=== PATIENT | male | born 1980 | race Caucasian/White ===

== ENCOUNTER 2016-10-19 20:57 | Emergency (ER) | payer BC ==
[2016-10-19 21:14] VITALS: BP 165/116
--- NOTE | 2016-10-19 21:30 | EDM.PDOC ---
ED HPI GENERAL MEDICAL PROBLEM - General Chief Complaint: Lower Extremity Injury/Pain Stated Complaint: POSS BROKEN ANKLE Time Seen by Provider: 10/19/16 21:26 Source of Information: Reports: Patient History Limitations: Reports: No Limitations - History of Present Illness INITIAL COMMENTS - FREE TEXT/NARRATIVE: 35-year-old male presents for evaluation treatment of injury to the right ankle. Injury occurred prior to arrival in the ER. Patient reports he was playing basketball. He states he was trying to "do some [place] shit " in order to aid a game of Pig. Landed on an inverted ankle. Reports immediate pain and swelling. Has not been able to bear weight on the foot or ankle due to pain. Reports he has been icing this prior to arrival in the ER. Has injured the ankle past. No previous injuries history of any ankle fractures. Location: Reports: Lower Extremity, Right Treatments [employer]: Reports: Cold Therapy Right Ankle Pain Score (Numeric/FACES): 2 - Related Data Allergies Allergy/AdvReac Type Severity Reaction Status Date / Time levofloxacin [From Levaquin] Allergy Other Verified 10/19/16 21:14 Home Meds: Home Meds Escitalopram [Lexapro] 20 mg PO DAILY 10/19/16 [History] Zolpidem [Ambien] 10 mg PO BEDTIME PRN 10/19/16 [History] Past Medical History - Past Health History Medical/Surgical History: Denies Medical/Surgical History Social & Family History - Family History Family Medical History: Noncontributory - Tobacco Use Smoking Status *Q: Never Smoker - Recreational Drug Use Recreational Drug Use: No Review of Systems - Review of Systems Review Of Systems: See Below Musculoskeletal: Reports: Joint Pain (right ankle ), Joint Swelling (right ankle ) Skin: Denies: Bruising, Wound Neurological: Reports: Difficulty Walking. Denies: Numbness, Tingling ED EXAM, GENERAL - Physical Exam Exam: See Below Exam Limited By: No Limitations General Appearance: Alert, WD/WN, No Apparent Distress Respiratory/Chest: No Respiratory Distress Cardiovascular: Normal Peripheral Pulses, Regular Rate, Rhythm Peripheral Pulses: 2+: Posterior Tibial (L), Posterior Tibial (R), Dorsalis Pedis (L), Dorsalis Pedis (R) Extremities: Normal Capillary Refill, Joint Swelling (right lateral malleolus ) , Limited Range of Motion (due to pain), Other (tenderness to palpation of the right lateral malleolus both superiorly and inferiorly; no tenderness to the dorsal foot) Neurological: Alert, Oriented, Normal Cognition Psychiatric: Normal Affect, Normal Mood Skin Exam: Warm, Dry, Normal Color. No: Ecchymosis Course - Vital Signs Last Recorded V/S: Last Vital Signs Temp 36.9 C 10/19/16 21:06 Pulse 76 10/19/16 21:06 Resp 18 10/19/16 21:06 BP 165/116 H 10/19/16 21:06 Pulse Ox 97 10/19/16 21:06 - Orders/Labs/Meds Orders: Active Orders 24 hr Category Date Time Status Ankle Min 3V Rt [CR] Stat Exams 10/19/16 21:13 Ordered - Radiology Interpretation Free Text/Narrative:: xray of the right ankle reviewed by myself and Dr. Manning. Soft tissue swelling. No acute fractures or dislocations. - Re-Assessments/Exams Free Text/Narrative Re-Assessment/Exam: 10/19/16 21:43 I reviewed the xray results with the patient. Will discharge home at this time. Discharge instructions as documented. Departure - Departure Time of Disposition: 21:43 Disposition: Home, Self-Care 01 Condition: Fair Clinical Impression: Ankle sprain - Discharge Information Referrals: PCP,Not In Area [Primary Care Provider] - Tim Mckeon PA-C [Physician Director [employer]] - Forms: ED Department Discharge Additional Instructions: Crutches for the next week. Continue to elevate and ice the ankle. Go to [facility] during normal business hours and ask for an air splint for the right ankle. [id number] Tylenol or Motrin as needed for pain relief. Follow-up with family medicine if not much better in one week. If you are here in [place] recommend Tim Mckeon or Neha villarreal. Please call [phone] to schedule with either one of these providers if needed. Please return to the ER if her symptoms change or worsen. - My Orders Last 24 Hours: My Active Orders 10/19/16 21:13 Ankle Min 3V Rt [CR] Stat - Assessment/Plan Last 24 Hours: My Active Orders 10/19/16 21:13 Ankle Min 3V Rt [CR] Stat
--- NOTE | 2016-10-23 10:47 | CR ---
Right ankle: Four views of the right ankle were obtained. Comparison: No previous study. Soft tissue swelling is identified. Ankle mortise is symmetric. No acute fracture, dislocation or other bony abnormality is identified. Impression: 1. Soft tissue swelling. 2. No acute bony abnormality is identified on right ankle exam. Diagnostic code #2
== END 2016-10-19 21:50 | disposition home or self-care (01) ==
LOC: JD.ED 20:57
DX: S93.401A Sprain of unspecified ligament of right ankle, initial encounter (principal); Z88.1 Allergy status to other antibiotic agents; Z79.899 Other long term (current) drug therapy; X50.9XXA Other and unspecified overexertion or strenuous movements or postures, initial encounter; Y93.67 Activity, basketball
CPT/HCPCS: 73610-26-RT; 73610-RT; 99282; 99283